=== PATIENT | female | born 1970 | race Caucasian/White ===

== ENCOUNTER → 2017-07-21 | Emergency (ER) | payer OTHER ==
[~2017-07-21] VITALS: Ht 152.4 cm; Wt 68.0 kg
[~2017-07-21] MED LIST: ADVIL COLD & SI1 TAB; CEFADROXIL500 MG PO; INTESTINEX1 CAP PO; NASONEX17 GM NS; PHENAGIL CH TA1 EACH PO; PROTONIX40 MG PO
== END | disposition home or self-care (01) ==
LOC: ER 08:05
DX: R42 Dizziness and giddiness (principal)

== ENCOUNTER 2024-06-15 18:52 | Emergency (ER) | payer OTHER ==
[~2024-06-15] VITALS: Ht 157.5 cm; Wt 68.0 kg
[2024-06-15] MEDS ORDERED: CEFTRIAXONE SODIUM 2,000 MG VIAL ONE (20:11)
[2024-06-15] MEDS ORDERED: CEFTRIAXONE SODIUM 2,000 MG VIAL IV ONE (20:15)
[2024-06-15] MEDS ORDERED: KETOROLAC TROMETHAMINE 60 MG VIAL IM ONE ×2 (20:30→20:31)
== END 2024-06-15 21:03 | disposition home or self-care (01) ==
LOC: ER 18:54
DX: L02.818 Cutaneous abscess of other sites (principal)
CPT/HCPCS: 96365; 96372; 99282; J0696; J1885

== ENCOUNTER 2025-02-21 15:05 | Emergency (ER) | payer OTHER ==
[~2025-02-21] VITALS: Ht 152.4 cm; Wt 64.9 kg
[2025-02-21 19:02] LABS: BASO % 0.3 % (0.1-1.2); EOS # 0.17 (0.04-0.54); EOS % 2.2 % (0.7-7.0); LYMPH # 2.55 (1.18-3.74); LYMPH % 32.7 % (19.3-53.1); MEAN PLATELET VOLUME 11.00 fl (9.4-12.4); MONO # 0.39 (0.24-0.82); MONO % 5.0 % (4.7-12.5); NEUT # 4.63 (1.56-6.13); NEUT % 59.4 % (34.0-71.1); RED CELL DISTRIBUTION WIDTH 11.9 % (11.6-14.4)
[2025-02-21 19:45] LABS: ALT/SGPT 38.0 U/L (12-78); AST/SGOT 21.0 U/L (15-37); BILIRUBIN TOTAL 1.05 mg/dL (0.3-1.2); BUN CREA RATIO 20.0 (7.0-25.0); CREATININE SERUM 0.71 mg/dL (0.55-1.02); GFR 85.15; GLOBULINA 3.3 G/DL (2.4-3.5); GLUCOSE FASTING 98.0 mg/dL (65-100); OSMOLALITY SERUM 284.0 MOSM/KG (275-295)
== END 2025-02-21 21:26 | disposition home or self-care (01) ==
LOC: ER 15:05
PROVIDERS: General Practice
DX: I10 Essential (primary) hypertension (principal); R51.9 Headache, unspecified